=== PATIENT | male | born 1945 | race Caucasian/White ===

== ENCOUNTER → 2016-09-26 | Outpatient (CLI) | payer OTHER ==
[~2016-09-26] VITALS: Ht 182.9 cm; Wt 125.0 kg
[~2016-09-26] MED LIST: ALKA-SELTZER P1 EAC2 PO; CLONIDINE HCL0.1 MG PO; COUMADIN,JANTOVE1 MG PO; DILAUDID2 MG PO; ENDOCET 5-3251 EACH PO; FEOSOL325 MG PO; FERROUS SULFAT325 MG PO; LIDODERM 5% P1 PATCH TP; LOMOTIL TABLET1 EACH PO; LOTREL 5/201 CAPSULE PO; Lotrel 5/20 PO; MOBIC7.5 MG PO; PROCRIT10000 UNI1 IV; SENOKOT S,PE1 TABLET PO; SYNTHROID75 MCG PO; Tylenol Regular Stre PO; VITAMIN B122500 MCG PO; prednisone
[2016-09-26 14:03] LABS: HEMATOCRIT 31.9 % (38.0-50.0); MCV 87.2 FL (86-99)
== END | disposition home or self-care (01) ==
LOC: AMB 12:22
PROVIDERS: Specialist
PROC: 0D5P8ZZ Destruction of Rectum, Via Natural or Artificial Opening Endoscopic (ICD-10-PCS; principal; 2016-09-26)
DX: K55.20 Angiodysplasia of colon without hemorrhage (principal); Y84.2 Radiological procedure and radiotherapy as the cause of abnormal reaction of the patient, or of later complication, without mention of misadventure at the time of the procedure; D63.1 Anemia in chronic kidney disease; Z90.5 Acquired absence of kidney; C64.1 Malignant neoplasm of right kidney, except renal pelvis; C61 Malignant neoplasm of prostate; Z86.010 Personal history of colon polyps; Z79.899 Other long term (current) drug therapy; E03.2 Hypothyroidism due to medicaments and other exogenous substances; N18.3 Chronic kidney disease, stage 3 (moderate)
CPT/HCPCS: 85014; 85018; B4087; J2250

== ENCOUNTER → 2016-11-03 | Outpatient (CLI) | payer OTHER ==
[~2016-11-03] VITALS: Ht 182.9 cm; Wt 124.7 kg
== END | disposition home or self-care (01) ==
LOC: AMB 10-19 13:30
PROC: 0D5P8ZZ Destruction of Rectum, Via Natural or Artificial Opening Endoscopic (ICD-10-PCS; principal; 2016-11-03)
DX: K55.21 Angiodysplasia of colon with hemorrhage (principal); Y84.2 Radiological procedure and radiotherapy as the cause of abnormal reaction of the patient, or of later complication, without mention of misadventure at the time of the procedure; Z85.528 Personal history of other malignant neoplasm of kidney; Z85.46 Personal history of malignant neoplasm of prostate; Z92.21 Personal history of antineoplastic chemotherapy; Z92.3 Personal history of irradiation; I10 Essential (primary) hypertension; Z86.010 Personal history of colon polyps; Z96.653 Presence of artificial knee joint, bilateral; Z80.0 Family history of malignant neoplasm of digestive organs; Z82.49 Family history of ischemic heart disease and other diseases of the circulatory system; E66.3 Overweight; Z68.38 Body mass index [BMI] 38.0-38.9, adult
CPT/HCPCS: J2250

== ENCOUNTER 2017-03-30 10:39 | Emergency (ER) | payer OTHER ==
[~2017-03-30] VITALS: Ht 182.9 cm; Wt 123.1 kg
[2017-03-30 11:43] LABS: ADD MIUA? YES; BILIRUBIN NEGATIVE; BLOOD LARGE; COLOR RED ((YELLOW)); GLUCOSE (STRIP) NEGATIVE; KETONES NEGATIVE; LEUKOCYTES NEGATIVE; NITRITE NEGATIVE; PROTEIN (STRIP) 100; SPECIFIC GRAVITY 1.014 (1.000-1.030); UROBILINOGEN 0.2 MG/DL (0.2-1.0)
[2017-03-30 12:03] LABS: RED BLOOD CELLS TNTC /HPF (0-5)
[2017-03-30 12:04] LABS: BACTERIA NONE SEEN /HPF; EPITHELIAL CELLS NONE SEEN /HPF; MUCUS NONE SEEN /LPF; UCUL ADDED? NO; WHITE BLOOD CELLS NONE SEEN /HPF (0-5)
[2017-03-30 14:00] VITALS: BP 158/77
[2017-03-31] MEDS ORDERED: ALKA-SELTZER P1 EAC2 PO (15:32)
[2017-03-31] MEDS ORDERED: VICKS VAPORUB O50 GM TP (15:32)
== END 2017-03-30 14:02 | disposition home or self-care (01) ==
LOC: EME 10:39
PROVIDERS: Emergency Medicine
PROC: 0T9B70Z Drainage of Bladder with Drainage Device, Via Natural or Artificial Opening (ICD-10-PCS; principal; 2017-03-30)
DX: R33.9 Retention of urine, unspecified (principal); R31.9 Hematuria, unspecified; Z85.46 Personal history of malignant neoplasm of prostate; Z85.528 Personal history of other malignant neoplasm of kidney; I10 Essential (primary) hypertension
CPT/HCPCS: 81003; 99281; 99284

== ENCOUNTER 2017-03-30 20:18 | Inpatient (IN) | payer OTHER ==
[~2017-03-30] VITALS: Ht 182.9 cm; Wt 122.1 kg
[2017-03-30 23:39] LABS: EOSINOPHIL (%) 0.1 % (0-5); HEMATOCRIT 31.2 % (38.0-50.0); IMMATURE GRANULOCYTE (%) 0.6 % (0.0-0.7); IMMATURE GRANULOCYTE COUNT 0.1 K/uL; LYMPHOCYTE COUNT 0.3 K/uL (1.0-2.8); MCH 22.8 PG (29.0-34.0); MCHC 30.1 G/DL (30.0-36.0); MCV 75.5 FL (86-99); MONOCYTE COUNT 0.4 K/uL (0-0.8); NEUTROPHIL (%) 90.4 % (45-76); PLATELET COUNT 190 K/uL (156-360); RBC DIS.WIDTH-CV 19.6 % (11.8-14.6); RBC DIS.WIDTH-SD 53.1 % (39-53); RED BLOOD COUNT 4.13 M/uL (4.00-5.50); WHITE BLOOD COUNT 8.9 K/uL (4.1-10.2)
[2017-03-30 23:48] LABS: CHLORIDE 110 mEq/L (99-109); POTASSIUM 5.3 mEq/L (3.7-5.4); SODIUM 141 mEq/L (136-147)
[2017-03-30 23:49] LABS: GLUCOSE 148 mg/dL (70-99)
[2017-03-30 23:51] LABS: ANION GAP 11 MEQ/L (2-14); INTER. NORMALIZED RATIO 1.2; PROTHROMBIN TIME 12.9 SEC (10.2-12.9)
[2017-03-30 23:53] LABS: GFR ESTIMATE (CALCULATED) 37 mL/min/
[2017-03-30 23:54] LABS: UREA NITROGEN (BUN) 38 mg/dL (9-23)
[2017-03-30 23:59] LABS: PTT 30.5 SEC (25-37)
[2017-03-31 03:05] VITALS: BP 158/74
[2017-03-31 06:04] LABS: HEMATOCRIT 30.3 % (38.0-50.0); MCH 23.1 PG (29.0-34.0); MCV 76.9 FL (86-99); MEAN PLAT.VOLUME 9.2 uM^3 (9.0-12.4); PLATELET COUNT 170 K/uL (156-360); RBC DIS.WIDTH-CV 19.6 % (11.8-14.6); RBC DIS.WIDTH-SD 54.8 % (39-53); RED BLOOD COUNT 3.94 M/uL (4.00-5.50); WHITE BLOOD COUNT 9.1 K/uL (4.1-10.2)
[2017-03-31 06:23] LABS: ALKALINE PHOSPHATASE 68 IU/L (3-129); ANION GAP 9 MEQ/L (2-14); CHLORIDE 108 MEQ/L (99-109); GFR ESTIMATE (CALCULATED) 30 mL/min/; GLUCOSE 129 mg/dL (70-99); POTASSIUM 4.9 MEQ/L (3.7-5.4); SAMPLE HEMOLYSIS CHECK 0; SAMPLE ICTERIC CHECK 0; SAMPLE LIPEMIA CHECK 0; SODIUM 139 MEQ/L (136-147); TOTAL BILIRUBIN 0.4 MG/DL (0.0-1.0); UREA NITROGEN (BUN) 43 mg/dL (9-23)
[2017-03-31 07:41] VITALS: BP 147/67
[2017-03-31 11:27] VITALS: BP 153/69
[2017-03-31] MEDS ORDERED: ALKA-SELTZER H1 EACH PO (15:32)
[2017-03-31] MEDS ORDERED: VICKS VAPORUB O50 GM TP (15:32)
[2017-03-31 15:45] VITALS: BP 153/70
[2017-03-31 16:21] LABS: HEMATOCRIT 30.7 % (38.0-50.0); MCV 77.3 FL (86-99)
[2017-03-31 23:00] VITALS: BP 161/74
[2017-04-01 06:08] LABS: HEMATOCRIT 28.9 % (38.0-50.0); MCH 23.1 PG (29.0-34.0); MCHC 29.8 G/DL (30.0-36.0); MCV 77.5 FL (86-99); MEAN PLAT.VOLUME 9.2 uM^3 (9.0-12.4); PLATELET COUNT 146 K/uL (156-360); RBC DIS.WIDTH-SD 56.2 % (39-53); RED BLOOD COUNT 3.73 M/uL (4.00-5.50); WHITE BLOOD COUNT 11.1 K/uL (4.1-10.2)
[2017-04-01 06:37] LABS: ANION GAP 10 MEQ/L (2-14); CHLORIDE 107 MEQ/L (99-109); GLUCOSE 130 mg/dL (70-99); MAGNESIUM 1.8 mg/dl (1.3-2.7); POTASSIUM 5.5 MEQ/L (3.7-5.4); SAMPLE HEMOLYSIS CHECK 0; SAMPLE ICTERIC CHECK 0; SAMPLE LIPEMIA CHECK 0; SODIUM 136 MEQ/L (136-147); UREA NITROGEN (BUN) 52 mg/dL (9-23)
[2017-04-01 07:00] LABS: GFR ESTIMATE (CALCULATED) 13 mL/min/
[2017-04-01 07:36] VITALS: BP 136/67
[2017-04-01 15:58] VITALS: BP 160/74
[2017-04-01 22:46] VITALS: BP 165/81
[2017-04-02 06:10] LABS: HEMATOCRIT 27.8 % (38.0-50.0); MCH 23.5 PG (29.0-34.0); MCHC 30.2 G/DL (30.0-36.0); MCV 77.7 FL (86-99); MEAN PLAT.VOLUME 9.3 uM^3 (9.0-12.4); PLATELET COUNT 151 K/uL (156-360); RBC DIS.WIDTH-CV 20.1 % (11.8-14.6); RBC DIS.WIDTH-SD 56.8 % (39-53); RED BLOOD COUNT 3.58 M/uL (4.00-5.50); WHITE BLOOD COUNT 10.1 K/uL (4.1-10.2)
[2017-04-02 06:36] LABS: ANION GAP 11 MEQ/L (2-14); CHLORIDE 108 MEQ/L (99-109); GFR ESTIMATE (CALCULATED) 10 mL/min/; GLUCOSE 112 mg/dL (70-99); POTASSIUM 4.4 MEQ/L (3.7-5.4); SAMPLE HEMOLYSIS CHECK 0; SAMPLE ICTERIC CHECK 0; SAMPLE LIPEMIA CHECK 0; SODIUM 137 MEQ/L (136-147); UREA NITROGEN (BUN) 64 mg/dL (9-23); URIC ACID 11.3 mg/dL (3.1-9.2)
[2017-04-02 06:47] LABS: EOSINOPHIL (%) 0.2 % (0-5); IMMATURE GRANULOCYTE (%) 0.4 % (0.0-0.7); INSTRUMENT ABS NEUTROPHIL CT 8.8 K/uL; LYMPHOCYTE COUNT 0.5 K/uL (1.0-2.8); MONOCYTE (%) 7.9 % (3-12); MONOCYTE COUNT 0.8 K/uL (0-0.8); NEUTROPHIL (%) 86.8 % (45-76); NEUTROPHIL COUNT 8.8 K/uL (1.8-6.4)
[2017-04-02 08:10] VITALS: BP 142/63
[2017-04-02 11:05] LABS: ADD MIUA? YES; BILIRUBIN NEGATIVE; BLOOD LARGE; COLOR YELLOW ((YELLOW)); GLUCOSE (STRIP) NEGATIVE; KETONES NEGATIVE; LEUKOCYTES NEGATIVE; NITRITE NEGATIVE; PROTEIN (STRIP) 100; SPECIFIC GRAVITY 1.009 (1.000-1.030); UROBILINOGEN 0.2 MG/DL (0.2-1.0)
[2017-04-02 11:16] LABS: BACTERIA RARE /HPF; EPITHELIAL CELLS NONE SEEN /HPF; MUCUS TRACE /LPF; RED BLOOD CELLS TNTC /HPF (0-5); UCUL ADDED? YES
[2017-04-02 11:33] VITALS: BP 138/61
[2017-04-02 22:38] VITALS: BP 139/65
[2017-04-03 05:51] LABS: EOSINOPHIL (%) 0 % (0-5); HEMATOCRIT 27.9 % (38.0-50.0); IMMATURE GRANULOCYTE (%) 0.6 % (0.0-0.7); INSTRUMENT ABS NEUTROPHIL CT 6.8 K/uL; LYMPHOCYTE COUNT 0.2 K/uL (1.0-2.8); MCH 23.5 PG (29.0-34.0); MCHC 30.8 G/DL (30.0-36.0); MCV 76.2 FL (86-99); MEAN PLAT.VOLUME 9.6 uM^3 (9.0-12.4); MONOCYTE (%) 1.4 % (3-12); MONOCYTE COUNT 0.1 K/uL (0-0.8); NEUTROPHIL (%) 94.7 % (45-76); NEUTROPHIL COUNT 6.8 K/uL (1.8-6.4); PLATELET COUNT 154 K/uL (156-360); RBC DIS.WIDTH-CV 19.9 % (11.8-14.6); RBC DIS.WIDTH-SD 55.9 % (39-53); RED BLOOD COUNT 3.66 M/uL (4.00-5.50); WHITE BLOOD COUNT 7.2 K/uL (4.1-10.2)
[2017-04-03 07:42] VITALS: BP 168/58
[2017-04-03 08:30] LABS: C DIFF TOXIN NEGATIVE (NEGATIVE)
[2017-04-03 08:34] LABS: PROBE CHECK PASS; SPECIMEN PROCESSING CONTROL PASS
[2017-04-03 10:00] LABS: ANION GAP 9 MEQ/L (2-14); CHLORIDE 112 MEQ/L (99-109); GFR ESTIMATE (CALCULATED) 16 mL/min/; GLUCOSE 181 mg/dL (70-99); POTASSIUM 4.9 MEQ/L (3.7-5.4); SAMPLE HEMOLYSIS CHECK 0; SAMPLE ICTERIC CHECK 0; SAMPLE LIPEMIA CHECK 0; SODIUM 142 MEQ/L (136-147); UREA NITROGEN (BUN) 69 mg/dL (9-23)
[2017-04-03 22:46] VITALS: BP 123/62
[2017-04-04 07:06] LABS: ANION GAP 11 MEQ/L (2-14); CHLORIDE 112 MEQ/L (99-109); GFR ESTIMATE (CALCULATED) 27 mL/min/; GLUCOSE 175 mg/dL (70-99); POTASSIUM 4.9 MEQ/L (3.7-5.4); SAMPLE HEMOLYSIS CHECK 0; SAMPLE ICTERIC CHECK 0; SAMPLE LIPEMIA CHECK 0; SODIUM 142 MEQ/L (136-147); UREA NITROGEN (BUN) 73 mg/dL (9-23)
[2017-04-04 07:11] LABS: EOSINOPHIL (%) 0 % (0-5); HEMATOCRIT 27.7 % (38.0-50.0); IMMATURE GRANULOCYTE (%) 0.7 % (0.0-0.7); IMMATURE GRANULOCYTE COUNT 0.1 K/uL; INSTRUMENT ABS NEUTROPHIL CT 8.2 K/uL; LYMPHOCYTE COUNT 0.3 K/uL (1.0-2.8); MCH 23.8 PG (29.0-34.0); MCV 76.7 FL (86-99); MEAN PLAT.VOLUME 9.9 uM^3 (9.0-12.4); MONOCYTE (%) 4.2 % (3-12); MONOCYTE COUNT 0.4 K/uL (0-0.8); NEUTROPHIL COUNT 8.2 K/uL (1.8-6.4); RBC DIS.WIDTH-CV 19.7 % (11.8-14.6); RBC DIS.WIDTH-SD 55.2 % (39-53); RED BLOOD COUNT 3.61 M/uL (4.00-5.50)
[2017-04-04 07:21] LABS: PLATELET COUNT 208 K/uL (156-360)
[2017-04-04 08:10] VITALS: BP 148/81
[2017-04-04 16:07] VITALS: BP 132/78
[2017-04-05 07:25] VITALS: BP 158/77
[2017-04-05 07:36] LABS: ANION GAP 11 MEQ/L (2-14); CHLORIDE 111 MEQ/L (99-109); GFR ESTIMATE (CALCULATED) 37 mL/min/; POTASSIUM 4.5 MEQ/L (3.7-5.4); SAMPLE HEMOLYSIS CHECK 0; SAMPLE ICTERIC CHECK 0; SAMPLE LIPEMIA CHECK 0; SODIUM 142 MEQ/L (136-147); UREA NITROGEN (BUN) 65 mg/dL (9-23)
[2017-04-05 07:37] LABS: GLUCOSE 111 mg/dL (70-99)
[2017-04-05] MEDS ORDERED: AMLODIPINE BESY10 MG PO (10:48)
[2017-04-05] MEDS ORDERED: NYSTATIN100000 UN1 PO (10:48)
[2017-04-05] MEDS ORDERED: PREDNISONE20 MG PO (10:48)
[2017-04-05] MEDS ORDERED: NABI650T PO (10:48)
== END 2017-04-05 13:07 | disposition home or self-care (01) | DRG 668 ==
LOC: EME 20:18 → EDOF 03-31 01:28 → ENRESERV 03-31 01:38 → 5EAST 03-31 02:47 → ENPENDDIS 04-05 → 5EAST 04-05 13:07
PROVIDERS: Emergency Medicine; Internal Medicine; Internal Medicine Nephrology
DX: N30.41 Irradiation cystitis with hematuria (principal); Y84.2 Radiological procedure and radiotherapy as the cause of abnormal reaction of the patient, or of later complication, without mention of misadventure at the time of the procedure; E87.5 Hyperkalemia; C64.1 Malignant neoplasm of right kidney, except renal pelvis; T45.1X5A Adverse effect of antineoplastic and immunosuppressive drugs, initial encounter; N32.89 Other specified disorders of bladder; I35.0 Nonrheumatic aortic (valve) stenosis; E87.2 Acidosis; N17.0 Acute kidney failure with tubular necrosis; N18.3 Chronic kidney disease, stage 3 (moderate); N13.8 Other obstructive and reflux uropathy; E66.09 Other obesity due to excess calories; N28.82 Megaloureter; R60.9 Edema, unspecified; N32.0 Bladder-neck obstruction; N28.89 Other specified disorders of kidney and ureter; E03.9 Hypothyroidism, unspecified; I12.9 Hypertensive chronic kidney disease with stage 1 through stage 4 chronic kidney disease, or unspecified chronic kidney disease; D63.8 Anemia in other chronic diseases classified elsewhere; Z96.0 Presence of urogenital implants; Z96.653 Presence of artificial knee joint, bilateral; R33.9 Retention of urine, unspecified; Z92.3 Personal history of irradiation; Z90.5 Acquired absence of kidney; Z87.891 Personal history of nicotine dependence; Z85.46 Personal history of malignant neoplasm of prostate; Z68.36 Body mass index [BMI] 36.0-36.9, adult
CPT/HCPCS: 76770; 80048; 80053; 81003; 82948; 83735; 84100; 84550; 85014; 85018; 85025; 85027; 85610; 85730; 87040; 87086; 87493; 93306; 99281; 99284; 99285; C1758; J0690; J0881; J1815; J2270; J2405; J2765; J2930; J3010; J7030; J7050; J7512

== ENCOUNTER 2017-04-07 07:54 | Inpatient (IN) | payer OTHER ==
[~2017-04-07] VITALS: Ht 182.9 cm; Wt 127.1 kg
[~2017-04-07 07:54] MED LIST changes: +ALKA-SELTZER H1 EACH PO; +AMLODIPINE BESY10 MG PO; +NABI650T PO; +NYSTATIN100000 UN1 PO; +PREDNISONE20 MG PO; +VICKS VAPORUB O50 GM TP
[2017-04-07 09:40] LABS: ADD MIUA? YES; BILIRUBIN NEGATIVE; BLOOD LARGE; GLUCOSE (STRIP) NEGATIVE; KETONES NEGATIVE; LEUKOCYTES NEGATIVE; NITRITE NEGATIVE; PROTEIN (STRIP) 100; SPECIFIC GRAVITY 1.014 (1.000-1.030); UROBILINOGEN 0.2 MG/DL (0.2-1.0)
[2017-04-07 09:42] LABS: COLOR BLOODY ((YELLOW))
[2017-04-07 09:45] LABS: RED BLOOD CELLS TNTC /HPF (0-5); UCUL ADDED? YES
[2017-04-07 10:14] LABS: EOSINOPHIL (%) 0.2 % (0-5); HEMATOCRIT 27.2 % (38.0-50.0); IMMATURE GRANULOCYTE (%) 2.1 % (0.0-0.7); IMMATURE GRANULOCYTE COUNT 0.2 K/uL; INSTRUMENT ABS NEUTROPHIL CT 7.2 K/uL; LYMPHOCYTE COUNT 0.5 K/uL (1.0-2.8); MCH 24.2 PG (29.0-34.0); MCHC 31.6 G/DL (30.0-36.0); MCV 76.6 FL (86-99); MEAN PLAT.VOLUME 9.6 uM^3 (9.0-12.4); MONOCYTE (%) 8.9 % (3-12); MONOCYTE COUNT 0.8 K/uL (0-0.8); NEUTROPHIL COUNT 7.2 K/uL (1.8-6.4); NRBC (%) 1.3 /100 WBC (0-0); PLATELET COUNT 199 K/uL (156-360); RBC DIS.WIDTH-CV 20.2 % (11.8-14.6); RBC DIS.WIDTH-SD 55.8 % (39-53); RED BLOOD COUNT 3.55 M/uL (4.00-5.50); WHITE BLOOD COUNT 8.6 K/uL (4.1-10.2)
[2017-04-07 10:36] LABS: ANION GAP 6 MEQ/L (2-14); CHLORIDE 112 MEQ/L (99-109); POTASSIUM 4.5 MEQ/L (3.7-5.4); SAMPLE HEMOLYSIS CHECK 0; SAMPLE ICTERIC CHECK 0; SAMPLE LIPEMIA CHECK 0; SODIUM 141 MEQ/L (136-147); TOTAL BILIRUBIN 0.4 MG/DL (0.0-1.0)
[2017-04-07 10:42] LABS: ALKALINE PHOSPHATASE 51 IU/L (3-129); GFR ESTIMATE (CALCULATED) 40 mL/min/; GLUCOSE 111 mg/dL (70-99); UREA NITROGEN (BUN) 61 mg/dL (9-23)
[2017-04-07] MEDS ORDERED: NORVASC10 MG PO (15:51)
[2017-04-07] MEDS ORDERED: PREDNISONE10 MG PO (15:51)
[2017-04-07] MEDS ORDERED: NYSTATIN100000 UN1 PO (15:51)
[2017-04-07 18:52] LABS: HEMATOCRIT 29.6 % (38.0-50.0); MCV 76.3 FL (86-99)
[2017-04-07 22:39] VITALS: BP 170/84
[2017-04-07 23:00] VITALS: BP 175/86
[2017-04-07 23:59] VITALS: BP 173/84
[2017-04-08] VITALS (8 sets, daily range): BP systolic 156–175; BP diastolic 79–98
[2017-04-08 06:41] LABS: HEMATOCRIT 35.1 % (38.0-50.0); MCV 77.5 FL (86-99)
[2017-04-08 18:11] LABS: HEMATOCRIT 36.3 % (38.0-50.0); MCV 79.4 FL (86-99)
[2017-04-09 07:33] VITALS: BP 164/79
[2017-04-09 15:58] VITALS: BP 145/95
[2017-04-09 17:30] LABS: HEMATOCRIT 35.5 % (38.0-50.0); MCH 24.6 PG (29.0-34.0); MCHC 31.5 G/DL (30.0-36.0); MCV 77.9 FL (86-99); MEAN PLAT.VOLUME 9.3 uM^3 (9.0-12.4); NRBC (%) 0.3 /100 WBC (0-0); RBC DIS.WIDTH-CV 20.7 % (11.8-14.6); RBC DIS.WIDTH-SD 56.9 % (39-53); WHITE BLOOD COUNT 14.4 K/uL (4.1-10.2)
[2017-04-09 17:49] LABS: PLATELET COUNT 266 K/uL (156-360); RED BLOOD COUNT 4.56 M/uL (4.00-5.50)
[2017-04-09 17:51] LABS: ANION GAP 16 MEQ/L (2-14); CHLORIDE 108 MEQ/L (99-109); SAMPLE HEMOLYSIS CHECK 2; SAMPLE ICTERIC CHECK 0; SAMPLE LIPEMIA CHECK 0; SODIUM 139 MEQ/L (136-147); UREA NITROGEN (BUN) 75 mg/dL (9-23)
[2017-04-09 17:54] LABS: GFR ESTIMATE (CALCULATED) 16 mL/min/; GLUCOSE 233 mg/dL (70-99); POTASSIUM 5.6 MEQ/L (3.7-5.4)
[2017-04-09 23:18] VITALS: BP 170/80
[2017-04-10 06:50] VITALS: BP 173/79
[2017-04-10 08:45] LABS: HEMATOCRIT 32.7 % (38.0-50.0); MCHC 31.8 G/DL (30.0-36.0); MCV 78.6 FL (86-99); MEAN PLAT.VOLUME 9.4 uM^3 (9.0-12.4); PLATELET COUNT 209 K/uL (156-360); RBC DIS.WIDTH-SD 58.1 % (39-53); RED BLOOD COUNT 4.16 M/uL (4.00-5.50); WHITE BLOOD COUNT 13.6 K/uL (4.1-10.2)
[2017-04-10 09:20] LABS: ANION GAP 10 MEQ/L (2-14); CHLORIDE 113 MEQ/L (99-109); GLUCOSE 135 mg/dL (70-99); POTASSIUM 5.7 MEQ/L (3.7-5.4); SAMPLE HEMOLYSIS CHECK 0; SAMPLE ICTERIC CHECK 0; SAMPLE LIPEMIA CHECK 0; SODIUM 145 MEQ/L (136-147); UREA NITROGEN (BUN) 79 mg/dL (9-23)
[2017-04-10 09:31] LABS: GFR ESTIMATE (CALCULATED) 21 mL/min/
[2017-04-10 16:05] VITALS: BP 146/67
[2017-04-10 23:18] VITALS: BP 138/63
[2017-04-11 06:29] LABS: EOSINOPHIL (%) 0 % (0-5); HEMATOCRIT 34.6 % (38.0-50.0); IMMATURE GRANULOCYTE (%) 2.1 % (0.0-0.7); IMMATURE GRANULOCYTE COUNT 0.3 K/uL; INSTRUMENT ABS NEUTROPHIL CT 12.3 K/uL; LYMPHOCYTE COUNT 0.4 K/uL (1.0-2.8); MCHC 30.6 G/DL (30.0-36.0); MCV 78.5 FL (86-99); MEAN PLAT.VOLUME 9.3 uM^3 (9.0-12.4); MONOCYTE (%) 7.6 % (3-12); MONOCYTE COUNT 1.1 K/uL (0-0.8); NEUTROPHIL (%) 87.3 % (45-76); NEUTROPHIL COUNT 12.3 K/uL (1.8-6.4); NRBC (%) 0.1 /100 WBC (0-0); PLATELET COUNT 234 K/uL (156-360); RBC DIS.WIDTH-CV 20.9 % (11.8-14.6); RBC DIS.WIDTH-SD 58.5 % (39-53); RED BLOOD COUNT 4.41 M/uL (4.00-5.50); WHITE BLOOD COUNT 14.1 K/uL (4.1-10.2)
[2017-04-11 07:00] LABS: ANION GAP 11 MEQ/L (2-14); CHLORIDE 111 MEQ/L (99-109); GFR ESTIMATE (CALCULATED) 31 mL/min/; GLUCOSE 116 mg/dL (70-99); POTASSIUM 5.2 MEQ/L (3.7-5.4); SAMPLE HEMOLYSIS CHECK 0; SAMPLE ICTERIC CHECK 0; SAMPLE LIPEMIA CHECK 0; SODIUM 143 MEQ/L (136-147); UREA NITROGEN (BUN) 64 mg/dL (9-23)
[2017-04-11 07:24] VITALS: BP 172/87
[2017-04-11 16:10] VITALS: BP 174/82
[2017-04-12 00:03] VITALS: BP 137/70
[2017-04-12 06:45] VITALS: BP 156/74
[2017-04-12 07:32] LABS: EOSINOPHIL (%) 0 % (0-5); HEMATOCRIT 36.8 % (38.0-50.0); IMMATURE GRANULOCYTE (%) 1.1 % (0.0-0.7); IMMATURE GRANULOCYTE COUNT 0.1 K/uL; INSTRUMENT ABS NEUTROPHIL CT 10.8 K/uL; LYMPHOCYTE COUNT 0.6 K/uL (1.0-2.8); MCH 24.6 PG (29.0-34.0); MCHC 31.5 G/DL (30.0-36.0); MEAN PLAT.VOLUME 9.9 uM^3 (9.0-12.4); MONOCYTE (%) 7.6 % (3-12); NEUTROPHIL (%) 86.3 % (45-76); NEUTROPHIL COUNT 10.8 K/uL (1.8-6.4); PLATELET COUNT 229 K/uL (156-360); RBC DIS.WIDTH-SD 58.3 % (39-53); RED BLOOD COUNT 4.72 M/uL (4.00-5.50); WHITE BLOOD COUNT 12.6 K/uL (4.1-10.2)
[2017-04-12 08:01] LABS: ANION GAP 11 MEQ/L (2-14); CHLORIDE 101 MEQ/L (99-109); GFR ESTIMATE (CALCULATED) 35 mL/min/; GLUCOSE 157 mg/dL (70-99); MAGNESIUM 1.6 mg/dl (1.3-2.7); POTASSIUM 4.7 MEQ/L (3.7-5.4); SAMPLE HEMOLYSIS CHECK 0; SAMPLE ICTERIC CHECK 0; SAMPLE LIPEMIA CHECK 0; SODIUM 143 MEQ/L (136-147); UREA NITROGEN (BUN) 57 mg/dL (9-23)
[2017-04-12 14:00] LABS: HBSG INDEX 0.17
[2017-04-12 14:01] LABS: AHBS INDEX 0.53; HEPATITIS B SURFACE ANTIBODY Nonreactive; HPCA INDEX 0.06
[2017-04-12 14:02] LABS: ANTI-HEPATITIS A VIRUS (IGM) Nonreactive; HAV INDEX 0.16
[2017-04-12 14:05] LABS: ANTI-HEPATITIS B CORE (IGM) Nonreactive; HBC IgM INDEX 0.07
[2017-04-12 15:20] VITALS: BP 141/66
[2017-04-12 15:57] LABS: MCH 24.3 PG (29.0-34.0); MCHC 31.1 G/DL (30.0-36.0); MCV 78.1 FL (86-99); MEAN PLAT.VOLUME 9.4 uM^3 (9.0-12.4); PLATELET COUNT 197 K/uL (156-360); RBC DIS.WIDTH-CV 20.5 % (11.8-14.6); RBC DIS.WIDTH-SD 57.2 % (39-53); RED BLOOD COUNT 4.48 M/uL (4.00-5.50); WHITE BLOOD COUNT 27.4 K/uL (4.1-10.2)
[2017-04-12 16:16] LABS: ANION GAP 10 MEQ/L (2-14); CHLORIDE 105 MEQ/L (99-109); POTASSIUM 4.6 MEQ/L (3.7-5.4); SAMPLE HEMOLYSIS CHECK 1; SAMPLE ICTERIC CHECK 0; SAMPLE LIPEMIA CHECK 0; SODIUM 142 MEQ/L (136-147)
[2017-04-12 16:17] LABS: GFR ESTIMATE (CALCULATED) 28 mL/min/; GLUCOSE 181 mg/dL (70-99); UREA NITROGEN (BUN) 63 mg/dL (9-23)
[2017-04-12 16:20] LABS: TROP-I INTERPRETATION NEGATIVE
[2017-04-13 00:41] VITALS: BP 140/63
[2017-04-13 06:17] LABS: EOSINOPHIL (%) 0 % (0-5); HEMATOCRIT 32.4 % (38.0-50.0); IMMATURE GRANULOCYTE (%) 0.4 % (0.0-0.7); IMMATURE GRANULOCYTE COUNT 0.1 K/uL; INSTRUMENT ABS NEUTROPHIL CT 13.3 K/uL; LYMPHOCYTE COUNT 0.3 K/uL (1.0-2.8); MCH 24.9 PG (29.0-34.0); MCHC 30.9 G/DL (30.0-36.0); MCV 80.6 FL (86-99); MONOCYTE (%) 3.3 % (3-12); MONOCYTE COUNT 0.5 K/uL (0-0.8); NEUTROPHIL (%) 94.3 % (45-76); NEUTROPHIL COUNT 13.3 K/uL (1.8-6.4); RBC DIS.WIDTH-CV 20.4 % (11.8-14.6); RBC DIS.WIDTH-SD 59.7 % (39-53); RED BLOOD COUNT 4.02 M/uL (4.00-5.50); WHITE BLOOD COUNT 14.1 K/uL (4.1-10.2)
[2017-04-13 06:36] VITALS: BP 134/70
[2017-04-13 06:40] LABS: ANION GAP 12 MEQ/L (2-14); CHLORIDE 104 MEQ/L (99-109); GFR ESTIMATE (CALCULATED) 17 mL/min/; GLUCOSE 154 mg/dL (70-99); POTASSIUM 5.3 MEQ/L (3.7-5.4); SAMPLE HEMOLYSIS CHECK 0; SAMPLE ICTERIC CHECK 0; SAMPLE LIPEMIA CHECK 0; SODIUM 141 MEQ/L (136-147); UREA NITROGEN (BUN) 77 mg/dL (9-23)
[2017-04-13 06:46] LABS: PLAT.SUFFICIENCY DECREASED
[2017-04-13 18:16] VITALS: BP 140/78
[2017-04-13 23:22] VITALS: BP 136/67
[2017-04-14 06:17] LABS: HEMATOCRIT 33.5 % (38.0-50.0); MCV 78.8 FL (86-99)
[2017-04-14 08:29] LABS: ANION GAP 12 MEQ/L (2-14); CHLORIDE 101 MEQ/L (99-109); POTASSIUM 4.4 MEQ/L (3.7-5.4); SAMPLE HEMOLYSIS CHECK 0; SAMPLE ICTERIC CHECK 0; SAMPLE LIPEMIA CHECK 0; SODIUM 138 MEQ/L (136-147)
[2017-04-14 08:37] LABS: GLUCOSE 185 mg/dL (70-99); UREA NITROGEN (BUN) 73 mg/dL (9-23)
[2017-04-14 08:38] LABS: GFR ESTIMATE (CALCULATED) 13 mL/min/
[2017-04-14 16:26] VITALS: BP 128/60
[2017-04-14 23:44] VITALS: BP 120/56
[2017-04-15 08:22] VITALS: BP 130/61
[2017-04-15 16:29] VITALS: BP 138/69
[2017-04-15 20:36] VITALS: BP 150/76
[2017-04-15 23:27] VITALS: BP 152/67
[2017-04-16 07:20] VITALS: BP 175/81
[2017-04-16 11:07] VITALS: BP 120/64
[2017-04-16] MEDS ORDERED: RENVELA800 MG PO (13:32)
== END 2017-04-16 14:18 | disposition home or self-care (01) | DRG 656 ==
LOC: EME 07:54 → 5EAST 15:54 → EDOF 15:54 → ENRESERV 16:08 → 5EAST 17:53
PROVIDERS: Internal Medicine; Internal Medicine Cardiovascular Disease; Internal Medicine Nephrology; Physician Assistant; Urology
PROC: 30233N1 Transfusion of Nonautologous Red Blood Cells into Peripheral Vein, Percutaneous Approach (ICD-10-PCS; principal; 2017-04-07)
PROC: 0TT00ZZ Resection of Right Kidney, Open Approach (ICD-10-PCS; 2017-04-12)
PROC: 02HV33Z Insertion of Infusion Device into Superior Vena Cava, Percutaneous Approach (ICD-10-PCS; 2017-04-12)
PROC: 5A1D60Z (ICD-10-PCS; 2017-04-13)
DX: C64.1 Malignant neoplasm of right kidney, except renal pelvis (principal); N18.6 End stage renal disease; R31.0 Gross hematuria; Z85.46 Personal history of malignant neoplasm of prostate; E66.9 Obesity, unspecified; Z96.653 Presence of artificial knee joint, bilateral; N17.9 Acute kidney failure, unspecified; R32 Unspecified urinary incontinence; Z90.5 Acquired absence of kidney; I27.2 Other secondary pulmonary hypertension; I08.0 Rheumatic disorders of both mitral and aortic valves; Z85.528 Personal history of other malignant neoplasm of kidney; N13.9 Obstructive and reflux uropathy, unspecified; E87.5 Hyperkalemia; D64.9 Anemia, unspecified; E78.5 Hyperlipidemia, unspecified; I12.0 Hypertensive chronic kidney disease with stage 5 chronic kidney disease or end stage renal disease; Z68.38 Body mass index [BMI] 38.0-38.9, adult
CPT/HCPCS: 71010; 74181; 80048; 80048 91; 80053; 80069; 80074; 81003; 82948; 83735; 84100; 84484; 84999; 85014; 85018; 85025; 85027; 86706; 86900; 86901; 86920; 87086; 88307; 93005; 99281; 99285; C1788; J0330; J0690; J0692; J1100; J1170; J1644; J1885; J1940; J2250; J2405; J2710; J2765; J2920; J3010; J7050; J7512; P9016; Q0169

== ENCOUNTER 2017-05-02 09:32 | Inpatient (IN) | payer OTHER ==
[~2017-05-02] VITALS: Ht 182.9 cm; Wt 114.1 kg
[~2017-05-02 09:32] MED LIST changes: +NORVASC10 MG PO; +PREDNISONE10 MG PO; +RENVELA800 MG PO; +SYNTHROID50 MCG PO; -SYNTHROID75 MCG PO; +VELPHORO500 MG PO
[2017-05-02 10:04] VITALS: BP 113/56
[2017-05-02 10:06] LABS: HEMATOCRIT 32.2 % (38.0-50.0); MCH 24.6 PG (29.0-34.0); MCHC 29.8 G/DL (30.0-36.0); MCV 82.4 FL (86-99); MEAN PLAT.VOLUME 8.6 uM^3 (9.0-12.4); NRBC (%) 0.3 /100 WBC (0-0); PLATELET COUNT 226 K/uL (156-360); RBC DIS.WIDTH-CV 18.9 % (11.8-14.6); RBC DIS.WIDTH-SD 55.6 % (39-53); RED BLOOD COUNT 3.91 M/uL (4.00-5.50); WHITE BLOOD COUNT 6.2 K/uL (4.1-10.2)
[2017-05-02 10:35] LABS: ANION GAP 16 MEQ/L (2-14); CHLORIDE 93 MEQ/L (99-109); GFR ESTIMATE (CALCULATED) 6 mL/min/; GLUCOSE 98 mg/dL (70-99); POTASSIUM 4.7 MEQ/L (3.7-5.4); SAMPLE HEMOLYSIS CHECK 0; SAMPLE ICTERIC CHECK 0; SAMPLE LIPEMIA CHECK 0; SODIUM 141 MEQ/L (136-147); UREA NITROGEN (BUN) 54 mg/dL (9-23)
[2017-05-02 11:40] LABS: METH RESISTANT S AUREUS PCR NEGATIVE (NEGATIVE)
[2017-05-02 11:41] LABS: PROBE CHECK PASS; SPECIMEN PROCESSING CONTROL PASS
[2017-05-02 17:06] LABS: TROP-I INTERPRETATION INDETERMINATE; TROPONIN-I 0.38 ng/mL (0.0-0.30)
[2017-05-02 22:08] VITALS: BP 129/60
[2017-05-02 23:41] LABS: TROP-I INTERPRETATION POSITIVE
[2017-05-02 23:44] LABS: TROPONIN-I 0.61 ng/mL (0.0-0.30)
[2017-05-03 01:15] LABS: INTER. NORMALIZED RATIO 1.1; PROTHROMBIN TIME 12.4 SEC (10.2-12.9)
[2017-05-03 01:17] LABS: PTT 29.6 SEC (25-37)
[2017-05-03 03:19] LABS: TROP-I INTERPRETATION POSITIVE
[2017-05-03 03:22] LABS: TROPONIN-I 0.75 ng/mL (0.0-0.30)
[2017-05-03 04:29] VITALS: BP 127/58
[2017-05-03 05:22] LABS: HEMATOCRIT 28.4 % (38.0-50.0); MCH 24.3 PG (29.0-34.0); MCHC 29.6 G/DL (30.0-36.0); MCV 82.3 FL (86-99); MEAN PLAT.VOLUME 8.7 uM^3 (9.0-12.4); PLATELET COUNT 174 K/uL (156-360); RBC DIS.WIDTH-SD 55.4 % (39-53); RED BLOOD COUNT 3.45 M/uL (4.00-5.50); WHITE BLOOD COUNT 4.1 K/uL (4.1-10.2)
[2017-05-03 05:23] LABS: INTER. NORMALIZED RATIO 1.2; PROTHROMBIN TIME 12.7 SEC (10.2-12.9)
[2017-05-03 05:28] LABS: TROP-I INTERPRETATION POSITIVE
[2017-05-03 05:29] LABS: TROPONIN-I 0.72 ng/mL (0.0-0.30)
[2017-05-03 05:48] LABS: ANION GAP 14 MEQ/L (2-14); CHLORIDE 95 MEQ/L (99-109); GFR ESTIMATE (CALCULATED) 5 mL/min/; GLUCOSE 85 mg/dL (70-99); POTASSIUM 4.7 MEQ/L (3.7-5.4); SAMPLE HEMOLYSIS CHECK 0; SAMPLE ICTERIC CHECK 0; SAMPLE LIPEMIA CHECK 0; SODIUM 140 MEQ/L (136-147); UREA NITROGEN (BUN) 66 mg/dL (9-23)
[2017-05-03 08:00] VITALS: BP 128/75
[2017-05-03 15:00] VITALS: BP 105/51
[2017-05-03 20:00] VITALS: BP 135/60
[2017-05-04 00:44] VITALS: BP 154/73
[2017-05-04 03:47] VITALS: BP 147/66
[2017-05-04 05:02] LABS: HEMATOCRIT 29.1 % (38.0-50.0); MCH 24.3 PG (29.0-34.0); MCHC 29.6 G/DL (30.0-36.0); MCV 82.2 FL (86-99); MEAN PLAT.VOLUME 8.9 uM^3 (9.0-12.4); PLATELET COUNT 191 K/uL (156-360); RBC DIS.WIDTH-CV 19.1 % (11.8-14.6); RBC DIS.WIDTH-SD 56.5 % (39-53); RED BLOOD COUNT 3.54 M/uL (4.00-5.50); WHITE BLOOD COUNT 4.7 K/uL (4.1-10.2)
[2017-05-04 07:32] VITALS: BP 122/82
[2017-05-04] MEDS ORDERED: AMLODIPINE BES2.5 MG PO (08:23)
[2017-05-04] MEDS ORDERED: ATORVASTATIN CA80 MG PO (08:23)
[2017-05-04] MEDS ORDERED: LOPRESSOR25 MG PO (08:23)
[2017-05-04] MEDS ORDERED: CLOPIDOGREL75 MG PO (08:23)
[2017-05-04] MEDS ORDERED: ASPIR-LOW81 MG PO (08:23)
[2017-05-04 15:27] VITALS: BP 127/58
== END 2017-05-04 17:42 | disposition home or self-care (01) | DRG 252 ==
LOC: DELPENDDIS → SDC 09:32 → 4EAST 16:53 → 2SOUTH 16:53 → ENRESERV 16:55 → 4EAST 21:54 → ENPENDDIS 05-03 → 4EAST 05-04 09:44
PROVIDERS: Hospitalist; Internal Medicine Cardiovascular Disease; Surgery
PROC: 051F0ZY Bypass Left Cephalic Vein to Upper Vein, Open Approach (ICD-10-PCS; principal; 2017-05-02)
PROC: 5A1D00Z (ICD-10-PCS; 2017-05-03)
DX: I47.2 Ventricular tachycardia (principal); N18.6 End stage renal disease; I12.0 Hypertensive chronic kidney disease with stage 5 chronic kidney disease or end stage renal disease; C64.1 Malignant neoplasm of right kidney, except renal pelvis; E78.5 Hyperlipidemia, unspecified; I35.0 Nonrheumatic aortic (valve) stenosis; E66.01 Morbid (severe) obesity due to excess calories; R74.8 Abnormal levels of other serum enzymes; I45.10 Unspecified right bundle-branch block; E03.9 Hypothyroidism, unspecified; Z85.528 Personal history of other malignant neoplasm of kidney; Z90.5 Acquired absence of kidney; Z85.820 Personal history of malignant melanoma of skin; Z99.2 Dependence on renal dialysis; Z96.653 Presence of artificial knee joint, bilateral; Z92.3 Personal history of irradiation; Z85.46 Personal history of malignant neoplasm of prostate; Z68.34 Body mass index [BMI] 34.0-34.9, adult; Z79.82 Long term (current) use of aspirin; Z79.02 Long term (current) use of antithrombotics/antiplatelets; Z80.3 Family history of malignant neoplasm of breast; Z80.0 Family history of malignant neoplasm of digestive organs; Z82.49 Family history of ischemic heart disease and other diseases of the circulatory system
CPT/HCPCS: 78452; 80048; 84484; 85027; 85610; 85730; 87641; 93005; 93017; A9500; G0378; J0690; J1644; J2250; J2720; J2785; J3010

== ENCOUNTER 2017-06-25 12:15 | Day surgery (SDC) | payer OTHER ==
[~2017-06-25] VITALS: Ht 182.9 cm; Wt 113.4 kg
[~2017-06-25 12:15] MED LIST changes: +AMLODIPINE BES2.5 MG PO; +ASPIR-LOW81 MG PO; +ATORVASTATIN CA80 MG PO; +CLOPIDOGREL75 MG PO; +LOPRESSOR25 MG PO; +METOPROLOL TART25 MG PO
[2017-06-25] MEDS ORDERED: MULTI-VITAMIN1 EAC4 PO (13:21)
[2017-06-25 14:38] LABS: METH RESISTANT S AUREUS PCR NEGATIVE (NEGATIVE); PROBE CHECK PASS; SPECIMEN PROCESSING CONTROL PASS
== END 2017-06-25 14:45 | disposition home or self-care (01) ==
LOC: CATH 12:15
PROVIDERS: Surgery
DX: T82.858A Stenosis of other vascular prosthetic devices, implants and grafts, initial encounter (principal); N18.6 End stage renal disease; Z99.2 Dependence on renal dialysis; D63.1 Anemia in chronic kidney disease; Z85.46 Personal history of malignant neoplasm of prostate; Z85.528 Personal history of other malignant neoplasm of kidney; Z86.718 Personal history of other venous thrombosis and embolism; E66.9 Obesity, unspecified; Z79.02 Long term (current) use of antithrombotics/antiplatelets
CPT/HCPCS: 87641; C1725; C1769; C1894; J1644; J2250; J3010

== ENCOUNTER 2017-07-17 23:11 | Inpatient (IN) | payer OTHER ==
[~2017-07-17] VITALS: Ht 182.9 cm; Wt 117.5 kg
[~2017-07-17 23:11] MED LIST changes: +MULTI-VITAMIN1 EAC4 PO
[2017-07-17 23:50] LABS: HEMATOCRIT 30.7 % (38.0-50.0); MCH 27.7 PG (29.0-34.0); MCV 92.5 FL (86-99); MEAN PLAT.VOLUME 9.8 uM^3 (9.0-12.4); PLATELET COUNT 289 K/uL (156-360); RBC DIS.WIDTH-CV 17.8 % (11.8-14.6); RBC DIS.WIDTH-SD 59.9 % (39-53); RED BLOOD COUNT 3.32 M/uL (4.00-5.50)
[2017-07-17 23:55] LABS: INTER. NORMALIZED RATIO 1.2; PROTHROMBIN TIME 13.6 SEC (10.2-12.9)
[2017-07-17 23:58] LABS: PTT 25.8 SEC (25-37)
[2017-07-18 00:01] LABS: CHLORIDE 91 mEq/L (99-109); POTASSIUM 4.6 mEq/L (3.7-5.4); SODIUM 139 mEq/L (136-147)
[2017-07-18 00:02] LABS: MAGNESIUM 1.7 mg/dL (1.3-2.7)
[2017-07-18 00:04] LABS: GLUCOSE 154 mg/dL (70-99)
[2017-07-18 00:05] LABS: ANION GAP 17 MEQ/L (2-14); TOTAL BILIRUBIN 0.4 mg/dL (0.0-1.0)
[2017-07-18 00:07] LABS: ALKALINE PHOSPHATASE 66 IU/L (3-129); GFR ESTIMATE (CALCULATED) 8 mL/min/
[2017-07-18 00:08] LABS: UREA NITROGEN (BUN) 57 mg/dL (9-23)
[2017-07-18 00:11] LABS: LIPASE 30 U/L (1.0-51.0); TROP-I INTERPRETATION POSITIVE
[2017-07-18 00:13] LABS: TROPONIN-I 14.97 ng/mL (0.0-0.30)
[2017-07-18] MEDS ORDERED: ALLOPURINOL100 MG PO (01:51)
[2017-07-18] MEDS ORDERED: LEVOTHYROXINE75 MCG PO (01:52)
[2017-07-18] MEDS ORDERED: LOPRESSOR25 MG PO (01:52)
[2017-07-18 07:41] LABS: MCH 28.2 PG (29.0-34.0); MCV 93.9 FL (86-99); MEAN PLAT.VOLUME 9.8 uM^3 (9.0-12.4); PLATELET COUNT 225 K/uL (156-360); RBC DIS.WIDTH-CV 17.9 % (11.8-14.6); RED BLOOD COUNT 3.09 M/uL (4.00-5.50); WHITE BLOOD COUNT 7.7 K/uL (4.1-10.2)
[2017-07-18 08:13] LABS: TROP-I INTERPRETATION POSITIVE; TROPONIN-I 15.16 ng/mL (0.0-0.30)
[2017-07-18 08:43] VITALS: BP 105/54
[2017-07-18 09:19] LABS: ALKALINE PHOSPHATASE 54 IU/L (3-129); ANION GAP 17 MEQ/L (2-14); CHLORIDE 97 MEQ/L (99-109); DIRECT BILIRUBIN 0.1 mg/dL (0.0-0.3); GFR ESTIMATE (CALCULATED) 7 mL/min/; SAMPLE HEMOLYSIS CHECK 0; SAMPLE ICTERIC CHECK 0; SAMPLE LIPEMIA CHECK 0; SODIUM 143 MEQ/L (136-147); TOTAL BILIRUBIN 0.4 MG/DL (0.0-1.0); UREA NITROGEN (BUN) 62 mg/dL (9-23)
[2017-07-18 09:21] LABS: GLUCOSE 113 mg/dL (70-99)
[2017-07-18 11:29] VITALS: BP 118/79
[2017-07-18 11:52] VITALS: BP 98/60
[2017-07-18 15:21] LABS: TROP-I INTERPRETATION POSITIVE
[2017-07-18 15:22] LABS: TROPONIN-I 15.59 ng/mL (0.0-0.30)
[2017-07-18 16:00] VITALS: BP 95/67
[2017-07-18 19:26] LABS: INTER. NORMALIZED RATIO 1.2; PROTHROMBIN TIME 13.9 SEC (10.2-12.9)
[2017-07-18 19:32] LABS: PTT 48.4 SEC (25-37)
[2017-07-18 20:30] VITALS: BP 110/69
[2017-07-18 23:40] VITALS: BP 112/62
[2017-07-19 02:39] LABS: HEMATOCRIT 30.7 % (38.0-50.0); MCV 93.6 FL (86-99); MEAN PLAT.VOLUME 9.7 uM^3 (9.0-12.4); NRBC (%) 0.2 /100 WBC (0-0); PLATELET COUNT 241 K/uL (156-360); RBC DIS.WIDTH-CV 17.5 % (11.8-14.6); RBC DIS.WIDTH-SD 60.4 % (39-53); RED BLOOD COUNT 3.28 M/uL (4.00-5.50)
[2017-07-19 03:02] LABS: CHLORIDE 95 mEq/L (99-109); POTASSIUM 5.2 mEq/L (3.7-5.4); SODIUM 141 mEq/L (136-147)
[2017-07-19 03:04] LABS: GLUCOSE 106 mg/dL (70-99)
[2017-07-19 03:05] LABS: ANION GAP 19 MEQ/L (2-14)
[2017-07-19 03:07] LABS: GFR ESTIMATE (CALCULATED) 6 mL/min/
[2017-07-19 03:08] LABS: UREA NITROGEN (BUN) 75 mg/dL (9-23)
[2017-07-19 03:14] VITALS: BP 120/74
[2017-07-19 03:48] LABS: HDL CHOLESTEROL 30 MG/DL (Desirable>=40); LDL CHOLESTEROL 69 mg/dL (Desirable<100); NON-HDL CHOLESTEROL 84 mg/dL (Desirable<160); SAMPLE HEMOLYSIS CHECK 0; SAMPLE ICTERIC CHECK 0; SAMPLE LIPEMIA CHECK 0; TOTAL CHOLESTEROL 114 mg/dL (Desirable<200); TRIGLYCERIDES 77 MG/DL (Normal: <150)
[2017-07-19 09:00] VITALS: BP 128/73
== END 2017-07-19 09:19 | disposition short-term general hospital (02) | DRG 280 ==
LOC: EME 23:11 → EDOF 07-18 00:41 → ENRESERV 07-18 00:43 → 4EAST 07-18 11:53
PROVIDERS: Emergency Medicine; Internal Medicine
DX: I21.4 Non-ST elevation (NSTEMI) myocardial infarction (principal); I48.91 Unspecified atrial fibrillation; I13.2 Hypertensive heart and chronic kidney disease with heart failure and with stage 5 chronic kidney disease, or end stage renal disease; I50.9 Heart failure, unspecified; N18.6 End stage renal disease; I08.2 Rheumatic disorders of both aortic and tricuspid valves; D63.1 Anemia in chronic kidney disease; E03.9 Hypothyroidism, unspecified; E78.5 Hyperlipidemia, unspecified; I25.10 Atherosclerotic heart disease of native coronary artery without angina pectoris; I27.20 Pulmonary hypertension, unspecified; I45.10 Unspecified right bundle-branch block; E66.9 Obesity, unspecified; Z96.653 Presence of artificial knee joint, bilateral; Z99.2 Dependence on renal dialysis; Z90.5 Acquired absence of kidney; Z85.528 Personal history of other malignant neoplasm of kidney; Z68.35 Body mass index [BMI] 35.0-35.9, adult
CPT/HCPCS: 71010; 80048; 80053; 80061; 80076; 81003; 83690; 83735; 83880; 84100; 84439; 84443; 84481; 84484; 85027; 85610; 85730; 87086; 93005; 94799; 99281; 99285; C9113; J1160; J1940; J2060; J2405; J7030; J7050

== ENCOUNTER 2017-08-24 10:28 | Day surgery (SDC) | payer OTHER ==
[~2017-08-24 10:28] MED LIST changes: +ALLOPURINOL100 MG PO; +LEVOTHYROXINE75 MCG PO
[2017-08-24] MEDS ORDERED: ACETAMINOPHEN325 M1 PO (10:58)
[2017-08-24] MEDS ORDERED: ROXICODONE5 MG PO (10:59)
[2017-08-24] MEDS ORDERED: AMBIEN5 MG PO (11:00)
[2017-08-24] MEDS ORDERED: ELIQUIS5 MG PO (11:01)
[2017-08-24] MEDS ORDERED: FLORINEF ACETA0.1 MG PO (11:02)
[2017-08-24] MEDS ORDERED: PROAMATINE10 MG PO (11:02)
[2017-08-24] MEDS ORDERED: MYLICON,MYLANTA80 MG PO (11:03)
[2017-08-24] MEDS ORDERED: NEPHRO-VITE,1 TABLET PO (11:03)
[2017-08-24] MEDS ORDERED: MGO400 MG PO (11:04)
[2017-08-24 12:14] LABS: METH RESISTANT S AUREUS PCR NEGATIVE (NEGATIVE)
[2017-08-24 12:15] LABS: PROBE CHECK PASS; SPECIMEN PROCESSING CONTROL PASS
== END 2017-08-24 15:06 | disposition designated cancer center or children's hospital (05) ==
LOC: CATH 10:28
PROVIDERS: Surgery
DX: T82.858A Stenosis of other vascular prosthetic devices, implants and grafts, initial encounter (principal); N18.6 End stage renal disease; Z79.02 Long term (current) use of antithrombotics/antiplatelets
CPT/HCPCS: 87641; C1725; C1769; C1894; J1644; J2250; J3010

== ENCOUNTER 2017-09-13 06:53 | Day surgery (SDC) | payer OTHER ==
[~2017-09-13] VITALS: Ht 182.9 cm; Wt 112.0 kg
[~2017-09-13 06:53] MED LIST changes: +ACETAMINOPHEN325 M1 PO; +AMBIEN5 MG PO; +ELIQUIS5 MG PO; +FLORINEF ACETA0.1 MG PO; +LEVOTHYROXINE88 MCG PO; +LIPITOR10 MG PO; +LOPERAMIDE2 MG PO; +MGO400 MG PO; +MYLICON,MYLANTA80 MG PO; +NEPHRO-VITE,1 TABLET PO; +PROAMATINE10 MG PO; +ROXICODONE5 MG PO; +ZOFRAN4 MG PO
== END 2017-09-13 09:53 | disposition designated cancer center or children's hospital (05) ==
LOC: CATH 06:53
DX: T82.858A Stenosis of other vascular prosthetic devices, implants and grafts, initial encounter (principal); I12.0 Hypertensive chronic kidney disease with stage 5 chronic kidney disease or end stage renal disease; N18.6 End stage renal disease; I48.2 Chronic atrial fibrillation; E78.5 Hyperlipidemia, unspecified; E03.9 Hypothyroidism, unspecified; Z95.1 Presence of aortocoronary bypass graft; Z90.5 Acquired absence of kidney; Z79.02 Long term (current) use of antithrombotics/antiplatelets
CPT/HCPCS: 87641; C1725; C1769; C1894; J1644; J2250; J3010

== ENCOUNTER 2017-11-14 11:47 | Day surgery (SDC) | payer OTHER ==
[~2017-11-14] VITALS: Ht 182.9 cm; Wt 108.8 kg
[~2017-11-14 11:47] MED LIST changes: +ASPIR 8181 M1 PO; +MAGNESIUM400 M1 PO; +MIDRIN1 CAPSULE PO
[2017-11-14 12:25] VITALS: BP 149/81
[2017-11-14 13:19] LABS: HEMATOCRIT 43.2 % (38.0-50.0); MCH 28.4 PG (29.0-34.0); MCHC 30.1 G/DL (30.0-36.0); MCV 94.5 FL (86-99); PLATELET COUNT 188 K/uL (156-360); RBC DIS.WIDTH-CV 16.6 % (11.8-14.6); RBC DIS.WIDTH-SD 57.2 % (39-53); RED BLOOD COUNT 4.57 M/uL (4.00-5.50)
[2017-11-14 13:21] LABS: CHLORIDE 99 MEQ/L (99-109); CREATININE 6.6 MG/DL (0.6-1.3); GFR ESTIMATE (CALCULATED) 9 mL/min/ (58.99-99999); GLUCOSE 102 mg/dL (70-99); POTASSIUM 5.9 MEQ/L (3.7-5.4); SODIUM 141 MEQ/L (136-147); UREA NITROGEN (BUN) 47 mg/dL (9-23)
[2017-11-14 15:44] VITALS: BP 120/73
[2017-11-14 16:38] VITALS: BP 125/78
== END 2017-11-14 16:54 | disposition home or self-care (01) ==
LOC: SDC 11:47
PROVIDERS: Surgery
DX: N18.6 End stage renal disease (principal); Z99.2 Dependence on renal dialysis; I35.0 Nonrheumatic aortic (valve) stenosis; D64.9 Anemia, unspecified; E03.9 Hypothyroidism, unspecified; Z86.718 Personal history of other venous thrombosis and embolism; Z79.02 Long term (current) use of antithrombotics/antiplatelets; Z85.53 Personal history of malignant neoplasm of renal pelvis; Z85.46 Personal history of malignant neoplasm of prostate; Z98.62 Peripheral vascular angioplasty status; Z95.1 Presence of aortocoronary bypass graft; Z79.82 Long term (current) use of aspirin
CPT/HCPCS: 80048; 85027; 87641; C1768; J0690; J1100; J1644; J2405; J2720; J3010; S0020

== ENCOUNTER → 2018-01-04 | Outpatient (CLI) | payer OTHER | END | disposition home or self-care (01) | LOC: AMB 12-21 11:30 | PROC: 02PYX3Z Removal of Infusion Device from Great Vessel, External Approach (ICD-10-PCS; principal; 2018-01-04) | DX: Z45.2 Encounter for adjustment and management of vascular access device (principal); N18.6 End stage renal disease ==

== ENCOUNTER 2018-01-16 12:03 | Day surgery (SDC) | payer OTHER | END 2018-01-16 15:28 | disposition home or self-care (01) | LOC: CATH 12:03 | PROC: 05CY0ZZ Extirpation of Matter from Upper Vein, Open Approach (ICD-10-PCS; principal; 2018-01-16) | PROC: 3E03317 Introduction of Other Thrombolytic into Peripheral Vein, Percutaneous Approach (ICD-10-PCS; principal; 2018-01-16) | PROC: B51W1ZZ Fluoroscopy of Dialysis Shunt/Fistula using Low Osmolar Contrast (ICD-10-PCS; principal; 2018-01-16) | PROC: 05HY33Z Insertion of Infusion Device into Upper Vein, Percutaneous Approach (ICD-10-PCS; principal; 2018-01-16) | DX: T82.868A Thrombosis due to vascular prosthetic devices, implants and grafts, initial encounter (principal); Y83.2 Surgical operation with anastomosis, bypass or graft as the cause of abnormal reaction of the patient, or of later complication, without mention of misadventure at the time of the procedure; N18.6 End stage renal disease; Z99.2 Dependence on renal dialysis; Z85.528 Personal history of other malignant neoplasm of kidney; Z85.46 Personal history of malignant neoplasm of prostate; Z86.718 Personal history of other venous thrombosis and embolism; Z79.82 Long term (current) use of aspirin; Z79.02 Long term (current) use of antithrombotics/antiplatelets | CPT/HCPCS: 87641; C1725; C1757; C1769; C1874; C1894; C2628; J0690; J1644; J2250; J3010; S0020 ==